=== PATIENT | female | born 1970 | race Caucasian/White ===

== ENCOUNTER 2018-08-15 17:10 | Emergency (ER) | payer OTHER ==
[~2018-08-15] VITALS: Ht 177.8 cm; Wt 122.0 kg
[2018-08-15 17:21] VITALS: Ht 177.8 cm; Wt 122.0 kg
[2018-08-15 19:32] VITALS: BP 124/79
== END 2018-08-15 19:32 | disposition home or self-care (01) ==
LOC: ED 17:10
DX: F41.9 Anxiety disorder, unspecified (principal); F32.9 Major depressive disorder, single episode, unspecified

== ENCOUNTER 2019-03-07 14:46 | Emergency (ER) | payer OTHER ==
[~2019-03-07] VITALS: Ht 172.7 cm; Wt 81.6 kg
[2019-03-07 15:03] VITALS: Ht 172.7 cm; Wt 81.6 kg
[2019-03-07 15:31] LABS: PLATELET COUNT 333 x10^3mcL (130-400)
[2019-03-07 15:38] LABS: BASOPHIL % 0 % (0-2); RED CELL DISTRIBUTION WIDTH 16.4 % (11.5-14.5)
[2019-03-07 15:39] LABS: CALCIUM 8.9 mg/dL (8.5-10.1); CARBON DIOXIDE 30.1 mmol/L (21-32); CREATININE SERUM 1.1 mg/dL (0.6-1.0); POTASSIUM SERUM 3.7 mmol/L (3.5-5.1)
[2019-03-07 15:44] LABS: ALBUMIN 3.6 g/dL (3.4-5.0); BILIRUBIN TOTAL 0.3 mg/dL (0.20-1.00); TOTAL PROTEIN, SERUM 7.4 g/dL (6.4-8.2)
[2019-03-07 16:32] LABS: microscopic required? NO
[2019-03-07 16:54] LABS: UA SPECIFIC GRAVITY 1.025 (1.005-1.035); urine erythrocyte NEGATIVE (NEGATIVE)
[2019-03-07 19:33] VITALS: BP 121/77
== END 2019-03-07 19:33 | disposition home or self-care (01) ==
LOC: ED 14:46
PROVIDERS: Emergency Medicine
DX: K80.50 Calculus of bile duct without cholangitis or cholecystitis without obstruction (principal)
CPT/HCPCS: J1885; J2270; J2405; J3010

== ENCOUNTER 2019-03-13 10:09 | Emergency (ER) | payer OTHER ==
[~2019-03-13] VITALS: Ht 175.3 cm; Wt 112.5 kg
[2019-03-13 10:16] VITALS: Ht 175.3 cm; Wt 112.5 kg
[2019-03-13 12:46] LABS: BASOPHIL % 0.3 % (0-2); PLATELET COUNT 331 x10^3mcL (130-400); RED CELL DISTRIBUTION WIDTH 16.5 % (11.5-14.5)
[2019-03-13 12:53] LABS: CALCIUM 8.3 mg/dL (8.5-10.1); CARBON DIOXIDE 27.7 mmol/L (21-32); CREATININE SERUM 1.1 mg/dL (0.6-1.0); POTASSIUM SERUM 3.4 mmol/L (3.5-5.1)
[2019-03-13 12:57] LABS: ALBUMIN 2.9 g/dL (3.4-5.0); BILIRUBIN TOTAL 0.3 mg/dL (0.20-1.00); TOTAL PROTEIN, SERUM 6.2 g/dL (6.4-8.2)
[2019-03-13 13:10] LABS: UA SPECIFIC GRAVITY 1.015 (1.005-1.035); microscopic required? YES; urine erythrocyte NEGATIVE (NEGATIVE)
[2019-03-13 16:42] VITALS: BP 121/80
== END 2019-03-13 16:42 | disposition home or self-care (01) ==
LOC: ED 10:09
PROVIDERS: Emergency Medicine
DX: N12 Tubulo-interstitial nephritis, not specified as acute or chronic (principal)
CPT/HCPCS: J0696; J1885; J2270; J2405; J2765; J3490; J7030; J7060

== ENCOUNTER 2019-03-20 17:50 | Inpatient (IN) | payer OTHER ==
[~2019-03-20] VITALS: Ht 175.3 cm; Wt 110.7 kg
[2019-03-20 18:12] VITALS: Ht 175.3 cm; Wt 110.7 kg
[2019-03-20 18:43] LABS: BASOPHIL % 0.3 % (0-2)
[2019-03-20 18:45] LABS: PLATELET COUNT 405 x10^3mcL (130-400)
[2019-03-20 18:53] LABS: CALCIUM 9.1 mg/dL (8.5-10.1); CARBON DIOXIDE 34.2 mmol/L (21-32); CREATININE SERUM 1.2 mg/dL (0.6-1.0); POTASSIUM SERUM 3.3 mmol/L (3.5-5.1)
[2019-03-20 19:00] LABS: ALBUMIN 3.5 g/dL (3.4-5.0); BILIRUBIN TOTAL 0.45 mg/dL (0.20-1.00); TOTAL PROTEIN, SERUM 7.3 g/dL (6.4-8.2)
[2019-03-21 00:13] LABS: CHOLESTEROL/HDL RATIO 3.3; MAGNESIUM 2.2 mg/dL (1.8-2.4); PHOSPHOROUS 3.2 mg/dL (2.5-4.9)
[2019-03-21 00:21] LABS: T3 TOTAL 1.31 ng/mL
[2019-03-21 00:28] LABS: microscopic required? NO
[2019-03-21 00:39] LABS: FREE T4 1.23 ng/dL (0.76-1.46); FREE THYROXINE INDEX 3.3 ug/dL (1.4-4.5); T4(THYROXINE) 10.1 ug/dL (4.7-13.3)
[2019-03-21 01:02] LABS: UA SPECIFIC GRAVITY 1.015 (1.005-1.035); urine erythrocyte NEGATIVE (NEGATIVE)
[2019-03-21 01:31] VITALS: BP 147/86
[2019-03-21 02:33] LABS: AMPHETAMINE QUAL UR NONE DETECTED (See below)
[2019-03-21 04:30] VITALS: BP 109/64
[2019-03-21 06:31] LABS: BASOPHIL % 0.4 % (0-2); PLATELET COUNT 302 x10^3mcL (130-400)
[2019-03-21 06:50] LABS: CALCIUM 7.9 mg/dL (8.5-10.1); CARBON DIOXIDE 31.9 mmol/L (21-32); CHLORIDE SERUM 100 mmol/L (98-107); GFR1 > 60 mL/min; GLUCOSE SERUM 100 mg/dL (74-106); MAGNESIUM 2.2 mg/dL (1.8-2.4); PHOSPHOROUS 4.2 mg/dL (2.5-4.9); POTASSIUM SERUM 3.5 mmol/L (3.5-5.1); SODIUM SERUM 140 mmol/L (136-145)
[2019-03-21 07:31] LABS: RED CELL DISTRIBUTION WIDTH 16.7 % (11.5-14.5)
[2019-03-21 08:18] LABS: BILIRUBIN DIRECT 0.11 mg/dL (0.0-0.2); BILIRUBIN TOTAL 0.3 mg/dL (0.20-1.00)
[2019-03-21 08:20] LABS: ALBUMIN 2.7 g/dL (3.4-5.0); TOTAL PROTEIN, SERUM 5.7 g/dL (6.4-8.2)
[2019-03-21 08:49] VITALS: BP 101/66
[2019-03-21 13:27] VITALS: BP 105/65
[2019-03-21 17:35] VITALS: BP 109/66
[2019-03-21 22:15] VITALS: BP 128/77
[2019-03-21 22:16] LABS: BILIRUBIN DIRECT 0.11 mg/dL (0.0-0.2); BILIRUBIN TOTAL 0.3 mg/dL (0.20-1.00)
[2019-03-21 22:17] LABS: ALBUMIN 2.7 g/dL (3.4-5.0); TOTAL PROTEIN, SERUM 5.5 g/dL (6.4-8.2)
[2019-03-22 05:37] VITALS: BP 116/64
[2019-03-22 06:50] LABS: BASOPHIL % 0.2 % (0-2); PLATELET COUNT 314 x10^3mcL (130-400)
[2019-03-22 06:51] LABS: RED CELL DISTRIBUTION WIDTH 16.1 % (11.5-14.5)
[2019-03-22 07:18] LABS: ALKALINE PHOSPHATASE 78 U/L (46-116); ALT/SGPT 29 U/L (14-59); AST/SGOT 35 U/L (15-37); BILIRUBIN TOTAL 0.28 mg/dL (0.20-1.00); CARBON DIOXIDE 25.3 mmol/L (21-32); CHLORIDE SERUM 104 mmol/L (98-107); CREATININE SERUM 0.8 mg/dL (0.6-1.0); GFR1 > 60 mL/min; GLUCOSE SERUM 108 mg/dL (74-106); POTASSIUM SERUM 3.8 mmol/L (3.5-5.1); SODIUM SERUM 138 mmol/L (136-145)
[2019-03-22 07:37] LABS: ALBUMIN 2.4 g/dL (3.4-5.0); TOTAL PROTEIN, SERUM 5.3 g/dL (6.4-8.2)
[2019-03-22 08:29] VITALS: BP 104/62
[2019-03-22 12:10] VITALS: BP 117/81
[2019-03-22 19:20] VITALS: BP 128/79
[2019-03-23 05:40] VITALS: BP 127/70
[2019-03-23 06:46] LABS: BASOPHIL % 0.3 % (0-2); PLATELET COUNT 300 x10^3mcL (130-400)
[2019-03-23 08:19] LABS: CALCIUM 7.8 mg/dL (8.5-10.1); CHLORIDE SERUM 110 mmol/L (98-107); GFR1 > 60 mL/min; GLUCOSE SERUM 104 mg/dL (74-106); POTASSIUM SERUM 3.6 mmol/L (3.5-5.1); SODIUM SERUM 143 mmol/L (136-145)
[2019-03-23 08:20] LABS: RED CELL DISTRIBUTION WIDTH 16.6 % (11.5-14.5)
[2019-03-23 08:39] VITALS: BP 135/86
[2019-03-23 12:58] VITALS: BP 144/90
[2019-03-23 18:02] VITALS: BP 147/89
[2019-03-23 20:56] VITALS: BP 130/67
[2019-03-24 05:34] VITALS: BP 109/67
[2019-03-24 06:31] LABS: PLATELET COUNT 306 x10^3mcL (130-400)
[2019-03-24 06:38] LABS: RED CELL DISTRIBUTION WIDTH 16.8 % (11.5-14.5)
[2019-03-24 06:48] LABS: CALCIUM 7.8 mg/dL (8.5-10.1); CARBON DIOXIDE 27.2 mmol/L (21-32); CHLORIDE SERUM 108 mmol/L (98-107); CREATININE SERUM 0.8 mg/dL (0.6-1.0); GFR1 > 60 mL/min; GLUCOSE SERUM 101 mg/dL (74-106); PHOSPHOROUS 3.7 mg/dL (2.5-4.9); POTASSIUM SERUM 3.7 mmol/L (3.5-5.1); SODIUM SERUM 143 mmol/L (136-145)
[2019-03-24 09:15] VITALS: BP 129/82
[2019-03-24] MEDS ORDERED: FLA500 PO (09:32)
[2019-03-24] MEDS ORDERED: COLACE100 MG PO (09:32)
[2019-03-24] MEDS ORDERED: MOT800 PO (09:32)
[2019-03-24 10:07] VITALS: BP 129/82
[2019-03-24 12:52] LABS: BAND NEUTROPHIL 1 % (0-10); BASOPHIL 0 % (0-2); MONOCYTE 9 % (0-7); SEGMENTED NEUTROPHILS 13 % (37-75); ovalocyte/elliptocyte 2+; rbc morphology (normal/abnorm) ABNORMAL (NORMAL)
[2019-03-24 12:53] LABS: PLATELET MORPHOLOGY PLATELETS INCREASED
== END 2019-03-24 11:35 | disposition home or self-care (01) | DRG 263 ==
LOC: ED 17:50 → MU 23:05
PROVIDERS: Emergency Medicine; Surgery; ADMIT Student in an Organized Health Care Education/Training Program
PROC: 0FT44ZZ Resection of Gallbladder, Percutaneous Endoscopic Approach (ICD-10-PCS; principal; 2019-03-21 19:00)
DX: K80.00 Calculus of gallbladder with acute cholecystitis without obstruction (principal); K82.A2 Perforation of gallbladder in cholecystitis; D47.3 Essential (hemorrhagic) thrombocythemia; E87.6 Hypokalemia; D50.9 Iron deficiency anemia, unspecified; E66.9 Obesity, unspecified; F41.9 Anxiety disorder, unspecified; F32.9 Major depressive disorder, single episode, unspecified; E86.0 Dehydration; Z68.35 Body mass index [BMI] 35.0-35.9, adult; Z79.899 Other long term (current) drug therapy
CPT/HCPCS: 84439; 90658; G0378; J0330; J0696; J1170; J1956; J2270; J2405; J2704; J2710; J2765; J3010; J3490; J7030; J7040; J7120; Q0092; Q9967

== ENCOUNTER 2019-04-13 09:41 | Emergency (ER) | payer OTHER ==
[~2019-04-13] VITALS: Ht 175.3 cm; Wt 100.7 kg
[~2019-04-13 09:41] MED LIST: COLACE100 MG PO; FLA500 PO; MOT800 PO
[2019-04-13 09:51] VITALS: Ht 175.3 cm; Wt 100.7 kg
[2019-04-13 11:07] LABS: BASOPHIL % 0.2 % (0-2); PLATELET COUNT 367 x10^3mcL (130-400); RED CELL DISTRIBUTION WIDTH 15.7 % (11.5-14.5)
[2019-04-13 11:41] LABS: ALBUMIN 3.4 g/dL (3.4-5.0); BILIRUBIN TOTAL 0.3 mg/dL (0.20-1.00); CALCIUM 8.9 mg/dL (8.5-10.1); CARBON DIOXIDE 28.1 mmol/L (21-32); CREATININE SERUM 1.1 mg/dL (0.6-1.0); TOTAL PROTEIN, SERUM 7.5 g/dL (6.4-8.2)
[2019-04-13 11:48] LABS: POTASSIUM SERUM 2.9 mmol/L (3.5-5.1)
[2019-04-13 17:40] VITALS: BP 135/85
== END 2019-04-13 17:40 | disposition home or self-care (01) ==
LOC: ED 09:41
PROVIDERS: Emergency Medicine
DX: R10.10 Upper abdominal pain, unspecified (principal); R11.2 Nausea with vomiting, unspecified; E87.6 Hypokalemia; Z98.890 Other specified postprocedural states
CPT/HCPCS: J0780; J1885; J2270; J2405; J3480; J7030; Q9967

== ENCOUNTER 2019-05-24 08:07 | Inpatient (IN) | payer OTHER ==
[~2019-05-24] VITALS: Ht 175.3 cm; Wt 99.3 kg
[2019-05-24 08:11] VITALS: Ht 175.3 cm; Wt 99.3 kg
[2019-05-24 08:52] LABS: BASOPHIL % 0.1 % (0-2); PLATELET COUNT 243 x10^3mcL (130-400)
[2019-05-24 08:54] LABS: RED CELL DISTRIBUTION WIDTH 22.7 % (11.5-14.5)
[2019-05-24 09:11] LABS: ovalocyte/elliptocyte 1+; tear drop cell (dacryocyte) 1+
[2019-05-24 09:12] LABS: rbc morphology (normal/abnorm) ABNORMAL (NORMAL)
[2019-05-24 09:12] LABS: microscopic required? NO
[2019-05-24 09:18] LABS: urine erythrocyte NEGATIVE (NEGATIVE)
[2019-05-24 09:20] LABS: AST/SGOT 27 U/L (15-37); BILIRUBIN TOTAL 0.8 mg/dL (0.20-1.00); CREATININE SERUM 1.1 mg/dL (0.6-1.0); GFR1 56 mL/min
[2019-05-24 09:39] LABS: ALKALINE PHOSPHATASE 146 U/L (46-116); ALT/SGPT 39 U/L (14-59); CARBON DIOXIDE 22.2 mmol/L (21-32); CHLORIDE SERUM 103 mmol/L (98-107); FREE T4 1.14 ng/dL (0.76-1.46); GLUCOSE SERUM 117 mg/dL (74-106); LIPASE 19 IU/L (73-393); POTASSIUM SERUM 3.8 mmol/L (3.5-5.1); SODIUM SERUM 139 mmol/L (136-145)
[2019-05-24 09:44] LABS: ALBUMIN 1.8 g/dL (3.4-5.0); AMYLASE 6 U/L (25-115); TOTAL PROTEIN, SERUM 4.6 g/dL (6.4-8.2)
[2019-05-24 09:50] LABS: CALCIUM 7.9 mg/dL (8.5-10.1)
[2019-05-24] MEDS ORDERED: QUETIAPINE FUMA25 M1 PO (10:28)
[2019-05-24] MEDS ORDERED: DOXEPIN HCL10 MG PO (10:29)
[2019-05-24] MEDS ORDERED: ALPRAZOLAM XR1 MG PO (10:30)
[2019-05-24 12:01] LABS: T3 TOTAL 0.66 ng/mL
[2019-05-24 12:30] LABS: MAGNESIUM 2.3 mg/dL (1.8-2.4); PHOSPHOROUS 4.1 mg/dL (2.5-4.9)
[2019-05-24 13:03] LABS: FREE T4 1.09 ng/dL (0.76-1.46)
[2019-05-24 13:05] LABS: FREE THYROXINE INDEX 1.5 ug/dL (1.4-4.5); T4(THYROXINE) 3.8 ug/dL (4.7-13.3)
[2019-05-24 13:56] VITALS: BP 127/88
[2019-05-24 17:45] VITALS: BP 114/83
[2019-05-24] MEDS ORDERED: DOXEPIN HCL100 MG PO (19:01)
[2019-05-24] MEDS ORDERED: SEROQUEL400 M1 PO (19:03)
[2019-05-24 21:27] VITALS: BP 125/89
[2019-05-25 04:59] VITALS: BP 118/87
[2019-05-25 06:35] LABS: CALCIUM 7.3 mg/dL (8.5-10.1); CARBON DIOXIDE 22.6 mmol/L (21-32); CHLORIDE SERUM 107 mmol/L (98-107); CREATININE SERUM 0.9 mg/dL (0.6-1.0); GFR1 > 60 mL/min; GLUCOSE SERUM 84 mg/dL (74-106); POTASSIUM SERUM 3.8 mmol/L (3.5-5.1); SODIUM SERUM 140 mmol/L (136-145)
[2019-05-25 06:40] LABS: BASOPHIL % 0.3 % (0-2); PLATELET COUNT 227 x10^3mcL (130-400)
[2019-05-25 07:06] LABS: RED CELL DISTRIBUTION WIDTH 22.4 % (11.5-14.5)
[2019-05-25 08:18] VITALS: BP 129/72
[2019-05-25 11:57] VITALS: BP 115/79
[2019-05-25 16:04] VITALS: BP 128/85
[2019-05-25 20:26] VITALS: BP 122/76
[2019-05-26 05:15] VITALS: BP 116/83
[2019-05-26 07:02] LABS: BASOPHIL % 0.2 % (0-2); PLATELET COUNT 254 x10^3mcL (130-400)
[2019-05-26 07:20] LABS: CALCIUM 7.4 mg/dL (8.5-10.1); CARBON DIOXIDE 19.2 mmol/L (21-32); CHLORIDE SERUM 108 mmol/L (98-107); CREATININE SERUM 0.8 mg/dL (0.6-1.0); GFR1 > 60 mL/min; GLUCOSE SERUM 89 mg/dL (74-106); POTASSIUM SERUM 3.8 mmol/L (3.5-5.1); SODIUM SERUM 139 mmol/L (136-145)
[2019-05-26 07:34] VITALS: BP 127/82
[2019-05-26 07:42] LABS: RED CELL DISTRIBUTION WIDTH 22.6 % (11.5-14.5)
[2019-05-26 11:54] VITALS: BP 118/82
[2019-05-26 16:23] VITALS: BP 124/84
[2019-05-26 20:29] VITALS: BP 120/84
[2019-05-27 05:49] VITALS: BP 116/81
[2019-05-27 06:23] LABS: BASOPHIL % 0.3 % (0-2)
[2019-05-27 06:46] LABS: CARBON DIOXIDE 22.6 mmol/L (21-32); CHLORIDE SERUM 110 mmol/L (98-107); CREATININE SERUM 0.7 mg/dL (0.6-1.0); GFR1 > 60 mL/min; GLUCOSE SERUM 79 mg/dL (74-106); POTASSIUM SERUM 4.1 mmol/L (3.5-5.1); SODIUM SERUM 140 mmol/L (136-145)
[2019-05-27 07:15] LABS: PLATELET COUNT 98 x10^3mcL (130-400); RED CELL DISTRIBUTION WIDTH 22.7 % (11.5-14.5)
[2019-05-27 08:18] VITALS: BP 123/78
[2019-05-27 11:41] LABS: rbc morphology (normal/abnorm) ABNORMAL (NORMAL)
[2019-05-27 12:06] VITALS: BP 115/79
[2019-05-27 12:15] VITALS: BP 115/79
== END 2019-05-27 13:30 | disposition home or self-care (01) | DRG 247 ==
LOC: ED 08:07 → MU 10:13
PROVIDERS: Emergency Medicine; ADMIT Student in an Organized Health Care Education/Training Program
DX: K56.609 Unspecified intestinal obstruction, unspecified as to partial versus complete obstruction (principal); E86.0 Dehydration; F41.9 Anxiety disorder, unspecified; Z90.49 Acquired absence of other specified parts of digestive tract; F32.9 Major depressive disorder, single episode, unspecified
CPT/HCPCS: 84439; G0378; J2270; J2405; J7030; Q0092; Q9967

== ENCOUNTER 2019-05-31 13:46 | Emergency (ER) | payer OTHER ==
[~2019-05-31] VITALS: Ht 172.7 cm; Wt 98.9 kg
[~2019-05-31 13:46] MED LIST changes: +ALPRAZOLAM XR1 MG PO; +DOXEPIN HCL10 MG PO; +DOXEPIN HCL100 MG PO; +QUETIAPINE FUMA25 M1 PO; +SEROQUEL400 M1 PO
[2019-05-31 13:51] VITALS: Ht 172.7 cm; Wt 98.9 kg
[2019-05-31 15:02] LABS: BASOPHIL % 0.2 % (0-2); PLATELET COUNT 262 x10^3mcL (130-400)
[2019-05-31 15:14] LABS: BILIRUBIN TOTAL 1.23 mg/dL (0.20-1.00); CARBON DIOXIDE 22.4 mmol/L (21-32); CREATININE SERUM 1.1 mg/dL (0.6-1.0)
[2019-05-31 15:16] LABS: RED CELL DISTRIBUTION WIDTH 20.9 % (11.5-14.5)
[2019-05-31 15:20] LABS: ALBUMIN 1.4 g/dL (3.4-5.0); POTASSIUM SERUM 2.8 mmol/L (3.5-5.1); TOTAL PROTEIN, SERUM 4.4 g/dL (6.4-8.2)
[2019-05-31 16:32] LABS: UA SPECIFIC GRAVITY 1.015 (1.005-1.035); microscopic required? YES; urine erythrocyte TRACE (NEGATIVE)
[2019-05-31 16:33] LABS: rbc morphology (normal/abnorm) ABNORMAL (NORMAL)
[2019-05-31 18:23] VITALS: BP 118/74
== END 2019-05-31 18:23 | disposition home or self-care (01) ==
LOC: ED 13:46
PROVIDERS: Emergency Medicine
DX: E87.6 Hypokalemia (principal); R53.1 Weakness; N39.0 Urinary tract infection, site not specified; Z90.49 Acquired absence of other specified parts of digestive tract
CPT/HCPCS: 83880; J0696; J2405; J7030; J7060; Q0092

== ENCOUNTER 2019-06-02 14:06 | Inpatient (IN) | payer OTHER ==
[~2019-06-02] VITALS: Ht 175.3 cm; Wt 94.8 kg
[2019-06-02 14:12] VITALS: Ht 175.3 cm; Wt 94.8 kg
--- NOTE | 2019-06-02 14:14 | NUR ---
PT ARRIVED TO ED BIBA WITH COMPLAINTS OF LEG PAIN X 2 WEEKS AND ABD PAIN X 2 MONTHS. PT STATES SHE ALSO CONTINUES TO GET MORE WEAKNESS SPECIFICALLY IN THE BLE. PT STATES WAS AT HER HOUSE AND WHEN TRYING TO WALK BACK UPSTAIRS FELL. PT DENIES ANY TRAUMA OR PAIN FROM THE FALL BUT DISCOLORATION IS NOTED TO BLE. +2 PITTING EDEMA NOTED TO BLE. PT STATES HAD GALL BLADDER REMOVED X 3 MONTHS AGO. PT STATES WAS IN ER A COUPLE OF DAYS AGO BECAUSE OF WEAKNESS AND WEAKNESS CONTINUES TO GET WORSE. PT LOOKS TO BE IN NO ACUTE DISTRESS AT THIS TIME AND IS AOX4. CALL LIGHT WITHIN REACH. WILL CONTINUE TO MONITOR.
--- NOTE | 2019-06-02 15:14 | NUR ---
LAB AT BEDSIDE
[2019-06-02 15:39] LABS: BASOPHIL % 0.1 % (0-2); PLATELET COUNT 239 x10^3mcL (130-400)
[2019-06-02 15:40] LABS: RED CELL DISTRIBUTION WIDTH 21.1 % (11.5-14.5)
[2019-06-02 15:43] LABS: CALCIUM 7.4 mg/dL (8.5-10.1); CARBON DIOXIDE 23.4 mmol/L (21-32); CREATININE SERUM 1.1 mg/dL (0.6-1.0); POTASSIUM SERUM 3.3 mmol/L (3.5-5.1)
[2019-06-02 15:47] LABS: BILIRUBIN TOTAL 1.4 mg/dL (0.20-1.00)
[2019-06-02 15:48] LABS: ALBUMIN 1.6 g/dL (3.4-5.0); TOTAL PROTEIN, SERUM 4.9 g/dL (6.4-8.2)
[2019-06-02 16:16] LABS: microscopic required? YES; urine erythrocyte NEGATIVE (NEGATIVE)
--- NOTE | 2019-06-02 17:35 | NUR ---
CALLED TO GIVE REPORT TO WARD
[2019-06-02 17:57] VITALS: BP 127/85
--- NOTE | 2019-06-02 18:07 | NUR ---
RECEIVED PT FROM ER, PT ADMIT FOR NEAR SYNCOPE, PT IS A/O X4, VERBAL RESPONSIVE. LUNG SOUND CLEAR BILATERAL, NO COUGH, NO SOB. PT IS ON TELE 8, NSR, DENY ANY CHEST PAIN OR DISCOMFORT, BOWEL SOUND PRESENT ALL 4 QUADRANTS, NO DISTENTION, NO TENDER, PEDAL PULSE PRESENT BOTH FEET, +1 EDEMA BLE. IV AT LEFT WRIST, NO LEAKIMG, NO INFILTRATION. ALL ADLS ASSIST, ALL NEED MET, CALL LIGHT IN REACH, WILL CONTINUE TO MONITOR.
[2019-06-02 18:08] LABS: AMPHETAMINE QUAL UR NONE DETECTED (See below)
[2019-06-02 18:12] LABS: CHOLESTEROL 126 mg/dL (<200); HDL CHOLESTEROL 6 mg/dL (40-60); MAGNESIUM 1.9 mg/dL (1.8-2.4); TRIGLYCERIDES 416 mg/dL (<150)
--- NOTE | 2019-06-02 18:15 | NUR ---
RECIEVED REPORT FROM RESOURCE NURSE. PATIENT ADMITTED TO FLOOR FROM EMERGENCY ROOM. THIS IS A READMIT. PATIENT IS A RECENT PREVIOUS PATIENT WITHIN THE PAST THREE WEEKS. PER PATIENT, PATIENT FELL AT HOME TODAY ON THE STAIRS. PATIENT STATES SIGNIFICANT GENERAL WEAKNESS. PER ASSESSMENT, PATIENT HAS +1 EDEMA TO BILATERAL LOWER EXTREMITIES. PATIENT HAD POTASSIUM LEVEL OF 3.3 AND RECIEVED 20MEQ POTASSIUM IN THE ER. PATIENT IS AWAKE ALERT AND ORIENTED. NO REPORT OF PAIN AT THIS TIME. ADMITTING DIAGNOSIS OF NEAR SYNCOPE. WILL ENDORSE ALL FURTHER CARE TO THE NOC NURSE.
[2019-06-02 18:16] LABS: T3 TOTAL 0.48 ng/mL
[2019-06-02 18:24] LABS: FREE T4 1.13 ng/dL (0.76-1.46)
[2019-06-02 18:27] LABS: FREE THYROXINE INDEX 1.7 ug/dL (1.4-4.5); T4(THYROXINE) 4.3 ug/dL (4.7-13.3)
--- NOTE | 2019-06-02 19:40 | NUR ---
RECEIVED PATIENT FROM DAY NURSE. TELE #8, HR 84, NSR. PATIENT RESTING IN BED, A/0X4, VERBALLY RESPONSIVE. BREATHING EVEN AND UNLABORED, ON ROOM AIR, DENIES SOB AND DIZZINESS. ABD SOFT AND ROUND, WILL BE NPO AFTER MIDNIGHT IN PREPARATION FOR ULTRASOUND TOMORROW, PATIENT MADE AWARE. +1 EDEMA BLE, WILL ELEVATE ON PILLOWS. IV LEFT WRIST, INTACT AND INFUSING NS 70ML/HR. DENIES PAIN. CALL LIGHT WITHIN REACH, BED PLACED IN LOWEST POSITION. WILL CONTINUE TO MONITOR.
[2019-06-02 19:59] VITALS: BP 105/73
--- NOTE | 2019-06-02 22:21 | NUR ---
PATIENT REFUSED DULCOLAX SUPPOSITORY, REQUESTED FOR ORAL STOOL MEDICATION. DR. CHO MADE AWARE AND STATED THAT SHE WILL PUT IN AN ORDER FOR COLACE.
--- NOTE | 2019-06-03 00:30 | NUR ---
PATIENT RESTING IN BED, EVEN CHEST RISE AND FALL. SHOWS NO SIGN OF PAIN OR DISTRESS. CALL LIGHT WITHIN REACH, WILL CONTINUE TO MONITOR.
[2019-06-03 04:55] VITALS: BP 104/71
[2019-06-03 05:28] LABS: CALCIUM 7.2 mg/dL (8.5-10.1); CARBON DIOXIDE 26.2 mmol/L (21-32); CHLORIDE SERUM 103 mmol/L (98-107); CREATININE SERUM 0.9 mg/dL (0.6-1.0); GFR1 > 60 mL/min; GLUCOSE SERUM 81 mg/dL (74-106); PHOSPHOROUS 2.6 mg/dL (2.5-4.9); POTASSIUM SERUM 3.3 mmol/L (3.5-5.1); SODIUM SERUM 135 mmol/L (136-145)
[2019-06-03 05:59] LABS: BASOPHIL % 0.3 % (0-2); PLATELET COUNT 209 x10^3mcL (130-400)
--- NOTE | 2019-06-03 06:00 | NUR ---
PATIENT RESTING IN BED, WITH EYES CLOSED. TELE #8, NSR [id number]. EVEN CHEST RISE AND FALL, SHOWS NO SIGN OF PAIN OR DISTRESS. NO SIGNIFICANT CHANGES DURING SHIFT. MAINTAINED NPO STATUS FOR US THIS MORNING, WILL ENDORSE TO DAY NURSE. SAFETY PRECAUTIONS IN PLACE THROUGHOUT SHIFT.
[2019-06-03 06:05] LABS: RED CELL DISTRIBUTION WIDTH 21.4 % (11.5-14.5)
--- NOTE | 2019-06-03 06:30 | NUR ---
I HAVE REVIEWED THE DATA COLLECTION BY MOLLY CRANE: JERAMY GALLARDO ENTERED ON: 06/01 1899- 06/02 I CONCUR WITH THE DATA AND ANY EXCEPTIONS OR COMMENTS ARE LISTED BELOW:
[2019-06-03 06:31] LABS: rbc morphology (normal/abnorm) ABNORMAL (NORMAL)
--- NOTE | 2019-06-03 07:15 | NUR ---
RECEIVED PATIENT FROM [facility] NURSE, ALERT AND ORIENTED X 4, ABLE TO VERBALIZE NEEDS, NO C/O PAIN AT THIS TIME,LUNG SOUNDS CLEAR ON RA, GENRALIZED WEAKNESS AND AMBULATES WITH ASSISTANCE, IV IN LEFT WRIST INTACT AND PATENT, ON TELEMETRY MONIITOR, CURRENTLY NSR 80, BOWEL SOUNDS ACTIVE, LAST BM 06/01, PATIENT IN CURRENLTY NPO AWAITING TO HAVE ABDOMINAL US DONE, SKIN INTACT, PEDAL PULSES EQUAL AND STRONG, +1 EDEMA NOTED IN BLE, CONTINENT OF BLADDER, PLEASANT ON COOPERATIVE
[2019-06-03 08:04] VITALS: BP 98/64
[2019-06-03 09:14] LABS: ALBUMIN 1.4 g/dL (3.4-5.0); BILIRUBIN DIRECT 0.44 mg/dL (0.0-0.2); BILIRUBIN TOTAL 1.04 mg/dL (0.20-1.00); TOTAL PROTEIN, SERUM 4.2 g/dL (6.4-8.2)
--- NOTE | 2019-06-03 09:45 | NUR ---
PO POTASSIUM HELD DUE TO PATIENTS NPO STATUS, WILL ADMINISTER AFTER ULTRASOUND PER PATIENTS REQUEST
--- NOTE | 2019-06-03 10:57 | NUR ---
ABDOMINAL ULTRASOUND COMPLETE
[2019-06-03 12:45] VITALS: BP 102/68
--- NOTE | 2019-06-03 13:00 | NUR ---
PATIENT REPORTS THAT SOMONE IS COMING TO PICK HER UP AND SHE "THINKS SHE NEEDS TO LEAVE" PROVIDED ACTIVE LISTENING REVIEWED WITH HER OTHER EXAMS THAT ARE NOT COMPLETE. SHE AGREED TO STAY UNTIL SHE SPEAKS TO THE MD. M
[2019-06-03] MEDS ORDERED: ZOF4 PO (14:20)
[2019-06-03] MEDS ORDERED: ACETAMINOPHEN500 M5 PO (14:21)
[2019-06-03 17:18] VITALS: BP 114/79
--- NOTE | 2019-06-03 18:35 | NUR ---
PATIENT RESTING COMFORTABLY IN BED, WATCHING TELEVISION, NO COMPLAINTS OF PAIN OR DISCOMFORT AT THIS TIME, WILL ENDORSE CARE TO PM NURSE
--- NOTE | 2019-06-03 19:20 | NUR ---
RECEIVED PATIENT FROM DAY NURSE. TELE #8. PATIENT RESTING IN BED, A/O X4, DENIES DIZZINESS, VERBALLY RESPONSIVE. BREATHING EVEN AND UNLABORED, ON ROOM AIR, DENIES SOB. ABD SOFT AND ROUND. USES BEDSIDE COMMODE. +1 PITTING EDEMA TO BLE. IV L WRIST INTACT, AND SALINE LOCKED. CALL LIGHT WITHIN REACH, BED PLACED IN LOWEST POSITION. WILL CONTINUE TO MONITOR.
[2019-06-03 20:40] VITALS: BP 115/80
--- NOTE | 2019-06-04 00:25 | NUR ---
PATIENT RESTING IN BED, WITH EYES CLOSED. EVEN CHEST RISE AND FALL. SHOWS NO SIGN OF PAIN OR DISTRESS AT THIS TIME. CALL LIGHT WITHIN REACH, BED IN LOWEST POSITION. WILL CONTINUE TO MONITOR.
[2019-06-04 05:13] VITALS: BP 112/71
--- NOTE | 2019-06-04 05:50 | NUR ---
PATIENT RESTING IN BED, WITH EYES CLOSED. EVEN CHEST RISE AND FALL. SHOWS NO SIGN OF PAIN OR DISTRESS. NO SIGNIFICANT CHANGES DURING SHIFT. CALL LIGHT WITHIN REACH, SAFETY PRECAUTIONS MAINTAINED THROUGHOUT SHIFT.
--- NOTE | 2019-06-04 07:30 | NUR ---
RECEIVED PATIENT IN BED AWAKE, ALERT AND ORIENTED. HL LEFT WRIST PATENT, FLUSHED WELL. TELE 8 NSR. RESP EVEN AND UNLABORED, LUNGS CLEAR ON ROOM AIR. 1+ EDEMA NOTED BLES. GENERALIZED WEAKNESS NOTED. PER PATIENT SHE HAS HAD FALLS AT HOME. USES BSC WITH ASSIST. NO ACUTE DISTRESS NOTED. PATIENT TO HAVE MRI DONE TODAY.
[2019-06-04 07:41] VITALS: BP 105/77
--- NOTE | 2019-06-04 07:56 | NUR ---
I HAVE REVIEWED THE DATA COLLECTION BY MOLLY CRANE: JERAMY GALLARDO ENTERED ON: 06/03 I CONCUR WITH THE DATA AND ANY EXCEPTIONS OR COMMENTS ARE LISTED BELOW:
[2019-06-04 09:15] LABS: BASOPHIL % 0.3 % (0-2); PLATELET COUNT 225 x10^3mcL (130-400)
[2019-06-04 09:16] LABS: RED CELL DISTRIBUTION WIDTH 21.6 % (11.5-14.5)
[2019-06-04 09:21] LABS: CALCIUM 7.2 mg/dL (8.5-10.1); CARBON DIOXIDE 22.9 mmol/L (21-32); CHLORIDE SERUM 105 mmol/L (98-107); CREATININE SERUM 0.8 mg/dL (0.6-1.0); GFR1 > 60 mL/min; GLUCOSE SERUM 105 mg/dL (74-106); MAGNESIUM 1.8 mg/dL (1.8-2.4); PHOSPHOROUS 2.5 mg/dL (2.5-4.9); POTASSIUM SERUM 3.6 mmol/L (3.5-5.1); SODIUM SERUM 136 mmol/L (136-145)
[2019-06-04 10:29] LABS: rbc morphology (normal/abnorm) ABNORMAL (NORMAL)
[2019-06-04 11:55] VITALS: BP 115/79
--- NOTE | 2019-06-04 13:23 | NUR ---
PATIENT'S PLAN OF CARE WAS DISCUSSED AND REVIEWED WITH CURRICULUM DEVELOPER:MARIA ELENA TENA. I HAVE REVIEWED THE DATA COLLECTION BY CURRICULUM DEVELOPER (NAME):MARIA ELENA TENA. ENTERED ON (DATE/TIME):06/04/19. I CONCUR WITH THE DATA AND ANY EXCEPTIONS OR COMMENTS ARE LISTED BELOW:
--- NOTE | 2019-06-04 14:05 | NUR ---
PATIENT DOWN FOR MRI OF ABD VIA W/C. WILL CONTINUE TO MONITOR UPON RETURN TO THE FLOOR.
--- NOTE | 2019-06-04 14:11 | NUR ---
PATIENT SEEN BY DR MICHEL AND NEW ORDERS RECEIVED TO TRANSFER PATIENT FROM TELE TO MED/SURG. PATIENT AWAITING MRI OF ABD TO BE DONE TODAY. NO ACUTE DISTRESS NOTED.
--- NOTE | 2019-06-04 14:22 | NUR ---
P.T. NOTES P.T. EVAL COMPLETED; REFER TO EVAL; Pt STATES CONSTIPATED, NO BM x3 DAYS, HAD 1 BM TODAY (SMALL AMOUNT), REPROTS DEC APPETITE, DEC SENSE OF TASTE & SMELL, NO C/O SOB OR DIZZINESS; WORRIED THAT NOBODY CAN HELP HER AT HOME, VERY ANXIOUS & APPREHENSIVE; REQ ASSIST IN DONNING UNDERWEAR & HOSPITAL SOCKS; AT=494/75 (SUPINE), 113/86 (SITTING), UNABLE TO ASSESS STANDING DUE TO ANXIETY.
[2019-06-04 16:05] VITALS: BP 113/82
--- NOTE | 2019-06-04 18:30 | NUR ---
PATIENT WENT DOWN FOR MRI ABD, AND HAS RETURNED TO ROOM. SITTING UP IN BED. PATIENT STARTED ON BOWEL PREP ORDERED, AFTER DR PALMER WAS INTO SEE PATIENT. CONSENTS SIGNED FOR EGD AND COLONOSCOPY. PATIENT UNABLE TO TOLERATE THE SUPRA PREP, HAD 2 EMESIS. WAS ABLE TO TAKE THE LACTULOSE AND SENNOKOT. PER PATIENT SHE IS STARTING TO HAVE ABD CRAMPING. PATIENT ON CLEAR LIQUID DIET THEN NPO AFTER MIDNOC. NO ACUTE DISTRESS NOTED.
--- NOTE | 2019-06-04 20:00 | NUR ---
RECEIVED PT IN BED AWAKE, ALERT, ORIENTED X4. SPEECH CLEAR. ABLE TO MAKE NEEDS KNOWN. PT C/O N/V IMPROVING. LUNG SOUNDS CLEAR. BREATHING EASILY ON ROOM AIR. NO TELE MONITOR NEEDED. +1 EDEMA TO BLE. BS ACTIVE IN ALL FOUR QUADS, ABD IS OBESE NONDISTENDED. NO BM NOTED. VOIDING FREELY WITH BSC. PT AMBULATES WITHOUT ASSISTANCE. GENERALIZED WEAKNESS NOTED. IV HL TO LEFT WRIST. SHIFT ASSESSMENT COMPLETED. CALL LIGHT WITHIN REACH. WILL CONTINUE TO MONITOR CLOSELY.
[2019-06-04 21:21] VITALS: BP 103/69
--- NOTE | 2019-06-04 22:00 | NUR ---
PT APPEARS TO BE SLEEPING IN NO DISTRESS. PT HAD BM X1. UNABLE TO COLLECT AT THIS TIME, SOPILED WITH URINE WELL. EXPLAINED TO PT WE NEED SPECIMEN, VERBALIZED UNDERSTANDING. ALL NEEDS TENDED TO. WILL CONTINUE TO MONITOR CLOSELY.
--- NOTE | 2019-06-04 23:45 | NUR ---
LACTOLOSE GIVEN, INSTRUCTED PT SHE IS NPO AFTER MIDNIGHT. WILL CONTINUE TO MONITOR CLOSELY.
--- NOTE | 2019-06-05 02:05 | NUR ---
PT APPEARS TO BE SLEEPING IN NO DISTRESS. PT IS NPO. ALL NEEDS TENDED TO. WILL CONTINUE TO MONITOR CLOSELY.
--- NOTE | 2019-06-05 05:10 | NUR ---
PT APPEARS TO BE SLEEPING THROUGH OUT THE NIGHT. NO DISTRESS NOTED. PT REMAINS NPO. ALL NEEDS TENDED TO. WILL CONTINUE TO MONITOR CLOSELY.
[2019-06-05 05:59] VITALS: BP 115/74
--- NOTE | 2019-06-05 06:24 | NUR ---
PT SITTING ON BSC. PT C/O N/V X1, ZOFRAN GIVEN ORDERED. ALL DUE MEDS GIVEN ORDERED. PT IS NPO. ALL NEEDS TENDED TO. CALL LIGHT WITHIN REACH. WILL ENDORSE TO INCOMING SHIFT.
--- NOTE | 2019-06-05 07:30 | NUR ---
RECEIVED PATIENT IN BED, APPEARS TO BE SLEEPING WELL. AROUSED TO NAME. PER NOC RN PATIENT DID NOT TOLERATE THE SUPRA BOWEL PREP WELL. PATIENT TO HAVE EGD/COLONOSCOPY THIS AM. GI SHADOW GRAPH WEIGHT OPERATOR NOTIFIED THAT PER NOC RN PATIENT WAS NOT CLEAN. PATIENT DID HAVE SEVERAL LOOSE STOOLS BUT NOT ANYWHERE NEAR CLEAR. HL PATIENT LEFT WRIST. RESP EVEN AND UNLABORED. NO ACUTE DISTRESS NOTED.
[2019-06-05 07:36] LABS: CALCIUM 7.5 mg/dL (8.5-10.1); CARBON DIOXIDE 21.5 mmol/L (21-32); CHLORIDE SERUM 101 mmol/L (98-107); CREATININE SERUM 0.9 mg/dL (0.6-1.0); GFR1 > 60 mL/min; GLUCOSE SERUM 92 mg/dL (74-106); POTASSIUM SERUM 3.3 mmol/L (3.5-5.1); SODIUM SERUM 137 mmol/L (136-145)
[2019-06-05 07:57] VITALS: BP 107/65
[2019-06-05 08:01] LABS: BASOPHIL % 0.2 % (0-2); PLATELET COUNT 247 x10^3mcL (130-400); RED CELL DISTRIBUTION WIDTH 21.7 % (11.5-14.5)
--- NOTE | 2019-06-05 09:05 | NUR ---
PATIENT WENT DOWN TO GI LAB VIA [facility] AT THIS TIME.
[2019-06-05 09:56] LABS: rbc morphology (normal/abnorm) ABNORMAL (NORMAL)
--- NOTE | 2019-06-05 10:20 | NUR ---
PATIENT RETURNED FROMGI LAB AT THIS TIME. AWAKE ALERT, ABD VERY FIRM AND DISTENDED, PT WAS GIVEN LAXATIVES IN GI LAB. CALL IGHT WITHIN REACH AND PATIENT INSTRUCTED TO USE FOR ASSIST.
--- NOTE | 2019-06-05 10:52 | NUR ---
PHYSICAL THERAPY DAILY NOTES CO-SIGN All documentation done by the Podiatry Assistant for 06/05/19 has been reviewed. I agree with the documentation. Reviewed/Co-Signed by: Merlin Paniagua PT Documentation Done by: DANETTE FINCH, NUT BLANKER OPERATOR
--- NOTE | 2019-06-05 11:29 | NUR ---
DR PALMER WAS INTO SEE PATIENT. PATIENT GIVEN FLEETS ENEMA AND IS NOW SITTING UP ON THE COMMODE. WILL CONTINUE TO MONITOR.
[2019-06-05 12:05] VITALS: BP 99/68
--- NOTE | 2019-06-05 12:10 | NUR ---
PATIENT'S PLAN OF CARE WAS DISCUSSED AND REVIEWED WITH REGIONAL SALES DIRECTOR:MARIA ELENA TENA. I HAVE REVIEWED THE DATA COLLECTION BY REGIONAL SALES DIRECTOR (NAME):MARIA ELENA TENA. ENTERED ON (DATE/TIME):06/05/19. I CONCUR WITH THE DATA AND ANY EXCEPTIONS OR COMMENTS ARE LISTED BELOW:
--- NOTE | 2019-06-05 12:11 | NUR ---
PATIENT ASSISTED UP TO BSC, AFTER ENEMA WAS GIVEN. PATIENT WAS UNABLE TO HAVE ANY BM AT THIS TIME. IVF INFUSING WELL ORDERED TO LEFT WRIST. ABD STILL VERY DISTENDED. ASSISTED PATIENT BACK TO BED. DR PALMER AWARE, NEW ORDERS RECEIVED FOR KUB AND TO HOLD ALL LAXATIVES UNTIL KUB IS TAKEN AND RESULTS RECEIVED. PATIENT'S HOB ELEVATED FOR ASPIRATION PRECAUTIONS PER DR PALMER. CALL LIGHT WITHIN REACH AND PATIENT INSTRUCTED TO USE CALL LIGHT FOR ASSIST. WILL CONTINUE TO MONITOR.
--- NOTE | 2019-06-05 13:57 | NUR ---
PATIENT REMAINS IN BED, AWAKE, ALERT AND ORIENTED. C/O ABD CRAMPING. LEVSIN SL GIVEN AT THIS TIME ORDERED. PATIENT HAS BEEN ASSISTED UP TO THE BSC BUT WAS UNABLE TO HAVE BM. WILL CONTINUE TO MONITOR.
--- NOTE | 2019-06-05 14:37 | NUR ---
PT STATED THAT SHE HAS SOB, O2 SAT=97%, PLACED ON 2LPM/NC, LUNG SOUNDS CTA. PT STATED THAT SHE FEELS ANXIOUS, MEDICATED W/ ATIVAN 1 MG PO, RR=20.
[2019-06-05 15:47] VITALS: BP 117/84
--- NOTE | 2019-06-05 17:55 | NUR ---
PER PATIENT OF YESTERDAY SHE DID NOT WANT ANY INFORMATION GIVEN OUT TO ANY FAMILY MEMBERS FROM STAFF OR DOCTORS. PATIENT'S DAUGHTER CALLED AND SCREAMED AND YELLED AT BE BARNES AND MYSELF AND DEMANDED INFORMATION ON HER MOM. WOULD NOT ALLOW ME OR BE BARNES TO GO AND ASK HER MOTHER IF WE COULD GIVE OUT HER INFO. DAUGHTER STATED," MY MOM IS A LIAR, SHE HAS LIED TO ME SO MANY TIMES." WOULD NOT LET ME GET A WORD IN [place]. PATIENT DID NOT WANT THE DOCTORS TO GIVE FAMILY MEMBERS ANY INFORMATION OR NURSES TO GIVE OUT ANY INFORMATION.
--- NOTE | 2019-06-05 18:02 | NUR ---
PATIENT'S MOTHER CALLED WANTED TO HAVE INFORMATION ON PATIENT. I WENT AND ASKED PATIENT IF IT IS OKAY TO GIVE INFORMATIION TO HER MOM. PER PATIENT YES IT IS AND STILL NO INFORMATION IS TO BE GIVEN TO HER DAUGHTER. I SPOKE WITH PATIENT'S MOM HAYDEN AND UPDATED HER ON PATEINT'S CONDITION AND PLAN OF CARE.
--- NOTE | 2019-06-05 18:33 | NUR ---
PATIENT IS IN BED, IV SITE INFLITRATED. WILL RESTART NEW IV. PATIENT IS TAKING BOWEL PREP ORDERED. HAS HAD 3 LARGE SOFT YELLOW BM'S.
--- NOTE | 2019-06-05 20:00 | NUR ---
PATIENT AWAKE/ALERT/ORIENTED X4 IN BED. RESPIRATION EVEN AND UNLABORED, ON O2 3L PER NASAL CANNULA. ONGOING D5 1/2 NS WIH 30 MEQS KCL AT 83 ML/HR INFUSING WELL AT THE R FOREARM. ON CLEAR LIQUID THEN NPO POST MIDNIGHT, FOR COLONOSCOPY IN AM. +1 EDEMA TO BLE. VOIDING FREELY WITHOUT DIFFICULTY. GENERALIZED WEAKNES, NEEDS ASSISTANCE WITH ADL'S. BRUISING TO BILAT BUTTOCKS. WILL CONTINUE TO MONITOR.
[2019-06-05 20:28] VITALS: BP 114/89
[2019-06-06 05:30] VITALS: BP 134/81
--- NOTE | 2019-06-06 06:15 | NUR ---
PATIENT RESTING IN BED, RESPIRATION EVEN AND UNLABORED, ON ROOM AIR. ON NPO, FOR COLONOSCOPY TODAY. DENIES PAIN AT THIS TIME. ASSISTED WITH NEEDS. SAFETY OBSERVED. PLACED BED IN THE LOWEST POSITION. PLACED CALL LIGHT WITHIN REACH AT ALL TIMES.
[2019-06-06 06:52] LABS: BASOPHIL % 0.2 % (0-2); PLATELET COUNT 243 x10^3mcL (130-400)
[2019-06-06 07:07] LABS: RED CELL DISTRIBUTION WIDTH 23.3 % (11.5-14.5)
[2019-06-06 07:20] LABS: CALCIUM 7.4 mg/dL (8.5-10.1); CARBON DIOXIDE 24.1 mmol/L (21-32); CREATININE SERUM 1.2 mg/dL (0.6-1.0); MAGNESIUM 2.6 mg/dL (1.8-2.4); POTASSIUM SERUM 3.8 mmol/L (3.5-5.1)
[2019-06-06 08:59] VITALS: BP 118/81
[2019-06-06 09:34] LABS: rbc morphology (normal/abnorm) ABNORMAL (NORMAL)
--- NOTE | 2019-06-06 11:36 | NUR ---
REPORT TAKEN FROM GI NURSE, PATIENT TOLERATED COLONOSCOPY WELL PER REPORT
--- NOTE | 2019-06-06 11:44 | NUR ---
P.T. NOTES PHYSICAL THERAPY TX ON HOLD SECONDARY TO PT RECENT COLONOSCOPY PERFORMED TODAY. WILL POSTPONE TO NEXT SCHEDULED PHYSICAL THERAPY TREATMENT, CONSIDERING PT APPROPRIATENESS FOR THERAPY.
--- NOTE | 2019-06-06 11:56 | NUR ---
PHYSICAL THERAPY DAILY NOTES CO-SIGN All documentation done by the Warp Knitting Machine Operator for 06/06/19 has been reviewed. I agree with the documentation. Reviewed/Co-Signed by: Merlin Paniagua PT Documentation Done by: DANETTE FINCH, MACHINERY REPAIR MAINTENANCE SUPERVISOR
[2019-06-06 12:21] LABS: BILIRUBIN DIRECT 0.82 mg/dL (0.0-0.2); BILIRUBIN TOTAL 1.1 mg/dL (0.20-1.00)
[2019-06-06 12:25] LABS: ALBUMIN 1.4 g/dL (3.4-5.0); TOTAL PROTEIN, SERUM 4.4 g/dL (6.4-8.2)
[2019-06-06 12:58] VITALS: BP 133/92
[2019-06-06 16:55] VITALS: BP 112/73
--- NOTE | 2019-06-06 20:01 | NUR ---
PT. AWAKE, ALERT, SITTING UP IN BED. ORIENTED X4. DENIES HEADACHE OR DIZZINESS. BREATH SOUNDS CLEAR THROUGHOUT LUNG GAYTAN, RESP. EVEN, UNLABORED. NO SOB NOTED. PT ON RA. ABD. SOFT AND ROUND WITH SOME DISTENTION NOTED. ONLY C/O PAIN WITH PALPATION, DENIES NAUSEA. BOWEL SOUNDS ACTIVE. TRACE EDEMA TO BLE. PEDAL PULSES MODERATE. IV HEPLOCKED, SITE INTACT. CALL LIGHT WITHIN REACH.
[2019-06-06 20:10] VITALS: BP 104/78
--- NOTE | 2019-06-07 00:25 | NUR ---
PT. SLEEPING, NO COMPLAINTS THUS FAR. CALL LIGHT WITHIN REACH.
[2019-06-07 05:35] VITALS: BP 109/69
--- NOTE | 2019-06-07 06:29 | NUR ---
NO C/O ABD. PAIN THROUGHOUT SHIFT. IV SITE INTACT. CALL LIGHT WITHIN REACH. WILL ENDORSE PT CARE TO INCOMNG NURSE.
--- NOTE | 2019-06-07 07:13 | NUR ---
PATIENT IS STATUS POST EGD PROCEDURE ON 06/05/19. PATIENT CURRENTLY AWAKE ALERT AND ORIENTED. IV TO THE RIGHT FOREARM CURRENTLY SALINE LOCKED. PATIENT REMAINS ON FULL LIQUID DIET. NO REPORT OF PAIN AT THIS TIME. SCDS IN PLACE. CALL LIGHT WITHIN REACH. SAFETY PRECAUTIONS IN PLACE. WILL CONTINUE TO PROVIDE CARE FOR PATIENT.
[2019-06-07 07:14] LABS: CARBON DIOXIDE 22.7 mmol/L (21-32); CHLORIDE SERUM 107 mmol/L (98-107); CREATININE SERUM 0.8 mg/dL (0.6-1.0); GFR1 > 60 mL/min; GLUCOSE SERUM 82 mg/dL (74-106); POTASSIUM SERUM 3.9 mmol/L (3.5-5.1); SODIUM SERUM 139 mmol/L (136-145)
[2019-06-07 07:34] LABS: BASOPHIL % 0.3 % (0-2); PLATELET COUNT 236 x10^3mcL (130-400)
[2019-06-07 07:37] LABS: RED CELL DISTRIBUTION WIDTH 23.2 % (11.5-14.5)
[2019-06-07 08:58] VITALS: BP 106/69
--- NOTE | 2019-06-07 10:22 | NUR ---
SPOKE WITH NURSE PRACTIONER REGARDING PATIENT SEVERE +3 PITTING EDEMA. PROGRAM DEVELOPMENT SPECIALIST ENCOURAGED AMBULATION OF PATIENT AND STATED THAT SHE WILL REVIEW LABS AND ORDER FURTHER MEDICATIONS NECESSARY.
--- NOTE | 2019-06-07 11:09 | NUR ---
PHYSICAL THERAPY DAILY NOTES CO-SIGN All documentation done by the Artificial Insemination Technician for 06/07/19 has been reviewed. I agree with the documentation. Reviewed/Co-Signed by: Merlin Paniagua PT Documentation Done by: DANETTE FINCH, POTATO CHIP PACKAGING MACHINE OPERATOR
[2019-06-07] MEDS ORDERED: LAC30L PO (12:09)
[2019-06-07] MEDS ORDERED: AMITIZA24 MC1 PO (12:10)
[2019-06-07] MEDS ORDERED: SEN PO (12:10)
[2019-06-07] MEDS ORDERED: SIN25 PO (12:10)
[2019-06-07] MEDS ORDERED: LEVSIN-SL0.125 MG SL (12:13)
[2019-06-07 12:42] VITALS: BP 114/76
[2019-06-07 13:08] VITALS: BP 106/69
--- NOTE | 2019-06-07 14:54 | NUR ---
DISCHARGE INSTRUCTIONS AND PRESCRIPTIONS GIVEN TO PATIENT. EDUCATION PROVIDEED ON FOLLOW UP APPOINTMENT. EDUCATION PROVIDED REGARDING NEW MEDICATIONS, CONTINUED MEDICATIONS, AND STOPPED MEDICATIONS. PATIENT VERBALIZED UNDERSTANDING. IV CATHETER REMOVED INTACT. PATIENT ESCORTED TO THE LOBBY BY SUPERVISOR POWDERED METAL VIA WHEELCHAIR. PATIENT GOING HOME VIA LYFT. ALL QUESTIONS AND CONCERNS ADDRESSED.
== END 2019-06-07 14:55 | disposition home or self-care (01) | DRG 48 ==
LOC: ED 14:06 → MU 16:51 → DU 16:51 → MU 06-04 14:07
PROVIDERS: Emergency Medicine; Internal Medicine; Internal Medicine Gastroenterology; ADMIT Family Medicine
PROC: 0DB68ZX Excision of Stomach, Via Natural or Artificial Opening Endoscopic, Diagnostic (ICD-10-PCS; 2019-06-05 09:15)
PROC: 0D9 Gastrointestinal System, Drainage (ICD-10-PCS; principal; 2019-06-06 09:15)
DX: G90.8 Other disorders of autonomic nervous system (principal); E43 Unspecified severe protein-calorie malnutrition; E87.1 Hypo-osmolality and hyponatremia; E87.6 Hypokalemia; F41.9 Anxiety disorder, unspecified; K59.03 Drug induced constipation; T50.995A Adverse effect of other drugs, medicaments and biological substances, initial encounter; F32.9 Major depressive disorder, single episode, unspecified; R74.0 Nonspecific elevation of levels of transaminase and lactic acid dehydrogenase [LDH]; D47.3 Essential (hemorrhagic) thrombocythemia; Z90.49 Acquired absence of other specified parts of digestive tract; Z68.30 Body mass index [BMI] 30.0-30.9, adult; Y92.89 Other specified places as the place of occurrence of the external cause; Z79.899 Other long term (current) drug therapy
CPT/HCPCS: 43235; 45378; 83880; 84439; 97112-GP; 97530-GP; A9577; G0378; J1200; J1610; J2250; J2310; J2405; J2765; J3010; J3480; J3490; J7030; Q0092

== ENCOUNTER 2019-06-11 13:20 | Emergency (ER) | payer OTHER ==
[~2019-06-11] VITALS: Ht 177.8 cm; Wt 90.7 kg
[~2019-06-11 13:20] MED LIST changes: +ACETAMINOPHEN500 M5 PO; +AMITIZA24 MC1 PO; +LAC30L PO; +LEVSIN-SL0.125 MG SL; +SEN PO; +SIN25 PO; +ZOF4 PO
[2019-06-11 13:25] VITALS: Ht 177.8 cm; Wt 90.7 kg
[2019-06-11 14:37] LABS: BASOPHIL % 1.1 % (0-2); PLATELET COUNT 270 x10^3mcL (130-400); RED CELL DISTRIBUTION WIDTH 24.8 % (11.5-14.5)
[2019-06-11 14:48] LABS: rbc morphology (normal/abnorm) ABNORMAL (NORMAL)
[2019-06-11 16:03] LABS: CALCIUM 7.3 mg/dL (8.5-10.1); CARBON DIOXIDE 21.8 mmol/L (21-32); CHLORIDE SERUM 105 mmol/L (98-107); CREATININE SERUM 0.9 mg/dL (0.6-1.0); GFR1 > 60 mL/min; GLUCOSE SERUM 88 mg/dL (74-106); POTASSIUM SERUM 3.5 mmol/L (3.5-5.1); SODIUM SERUM 138 mmol/L (136-145)
[2019-06-11 16:08] LABS: ALKALINE PHOSPHATASE 356 U/L (46-116); ALT/SGPT 66 U/L (14-59); AST/SGOT 60 U/L (15-37); BILIRUBIN TOTAL 1.27 mg/dL (0.20-1.00)
[2019-06-11 16:10] LABS: ALBUMIN 1.4 g/dL (3.4-5.0); TOTAL PROTEIN, SERUM 4.6 g/dL (6.4-8.2)
[2019-06-11 17:15] VITALS: BP 116/78
== END 2019-06-11 17:15 | disposition home or self-care (01) ==
LOC: ED 13:20
PROVIDERS: Emergency Medicine
DX: R53.1 Weakness (principal); D64.9 Anemia, unspecified; Z90.49 Acquired absence of other specified parts of digestive tract
CPT/HCPCS: 83880; J7030; Q0092

== ENCOUNTER 2019-08-08 19:12 | Emergency (ER) | payer OTHER ==
[~2019-08-08] VITALS: Ht 177.8 cm; Wt 81.6 kg
[2019-08-08 19:59] VITALS: Ht 177.8 cm; Wt 81.6 kg
[2019-08-08 20:50] LABS: BASOPHIL % 0.2 % (0-2); PLATELET COUNT 358 x10^3mcL (130-400); RED CELL DISTRIBUTION WIDTH 13.9 % (11.5-14.5)
[2019-08-08 21:36] LABS: ALKALINE PHOSPHATASE 91 U/L (46-116); ALT/SGPT 17 U/L (14-59); AST/SGOT 16 U/L (15-37); BILIRUBIN DIRECT 0.12 mg/dL (0.0-0.2); BILIRUBIN TOTAL 0.19 mg/dL (0.20-1.00); CALCIUM 7.9 mg/dL (8.5-10.1); CARBON DIOXIDE 25.5 mmol/L (21-32); CHLORIDE SERUM 108 mmol/L (98-107); CREATININE SERUM 0.8 mg/dL (0.6-1.0); GFR1 > 60 mL/min; GLUCOSE SERUM 94 mg/dL (74-106); SODIUM SERUM 144 mmol/L (136-145); TOTAL PROTEIN, SERUM 5.1 g/dL (6.4-8.2)
[2019-08-08 22:33] VITALS: BP 141/94
== END 2019-08-09 00:39 | disposition home or self-care (01) ==
LOC: ED 19:12
PROVIDERS: Student in an Organized Health Care Education/Training Program
DX: R20.2 Paresthesia of skin (principal); R53.1 Weakness; E87.6 Hypokalemia; I10 Essential (primary) hypertension; M79.7 Fibromyalgia; M10.9 Gout, unspecified; Z90.49 Acquired absence of other specified parts of digestive tract
CPT/HCPCS: 84439

== ENCOUNTER 2020-01-20 01:41 | Emergency (ER) | payer OTHER ==
[~2020-01-20] VITALS: Ht 177.8 cm; Wt 90.7 kg
[2020-01-20 02:01] VITALS: Ht 177.8 cm; Wt 90.7 kg
[2020-01-20 03:21] LABS: BASOPHIL % 0.6 % (0.2-1.3); PLATELET COUNT 349 x10^3mcL (179-408)
[2020-01-20 03:22] LABS: RED CELL DISTRIBUTION WIDTH 19.5 % (12.3-17.7)
[2020-01-20 03:29] LABS: CALCIUM 8.2 mg/dL (8.5-10.1); CARBON DIOXIDE 22.3 mmol/L (21-32); CHLORIDE SERUM 109 mmol/L (98-107); CREATININE SERUM 0.9 mg/dL (0.6-1.0); GFR1 > 60 mL/min; GLUCOSE SERUM 153 mg/dL (74-106); POTASSIUM SERUM 3.8 mmol/L (3.5-5.1); SODIUM SERUM 144 mmol/L (136-145)
[2020-01-20 03:33] LABS: ALBUMIN 1.9 g/dL (3.4-5.0); ALKALINE PHOSPHATASE 143 U/L (46-116); ALT/SGPT 24 U/L (14-59); AST/SGOT 33 U/L (15-37); MAGNESIUM 2.1 mg/dL (1.8-2.4); TOTAL PROTEIN, SERUM 5.2 g/dL (6.4-8.2)
[2020-01-20 03:47] VITALS: BP 96/73
[2020-01-20 12:21] VITALS: BP 80/39
== END 2020-01-20 12:21 | disposition expired ==
LOC: ED 01:41
PROVIDERS: Emergency Medicine
DX: I46.9 Cardiac arrest, cause unspecified (principal); R79.1 Abnormal coagulation profile; I10 Essential (primary) hypertension; M79.7 Fibromyalgia; Z90.49 Acquired absence of other specified parts of digestive tract; Z20.828 Contact with and (suspected) exposure to other viral communicable diseases
CPT/HCPCS: 36600; 83880; 85378; G0480; J0171; J1100; J2060; J2405; J2997